=== PATIENT | male | born 1985 | race Two or more races ===

== ENCOUNTER 2016-11-01 11:28 | Inpatient (IN) | payer BC ==
[~2016-11-01 11:28] MED LIST: NO MEDICATIONS
[2016-11-01] MEDS ORDERED: LEXAPRO20 M2 PO (11:41)
[2016-11-01] MEDS ORDERED: ASPIRIN325 M3 PO (11:42)
[2016-11-01] MEDS ORDERED: XANAX0.25 M1 PO (11:42)
[2016-11-01 12:59] LABS: BASO % 0.3 % (0-2); EOS % 0.1 % (0-7); HCT-HEMATOCRIT 39.7 % (36.0-53.5); HGB-HEMOGLOBIN 13.5 gm/dl (13.5-17.0); IMMATURE GRANULOCYTES ABSOLUTE 0.01 tho/cmm (0-0.03); IMMATURE GRANULOCYTES PERCENT 0.1 % (0-0.3); LYMPH % 15.4 % (20-45); LYMPH ABSOLUTE COUNT 1.1 tho/cmm (0.8-4.5); MCH (MEAN CORPUSCULAR HGB) 25.8 pg (28.0-32.0); MCV (MEAN CELL VOLUME) 75.9 fl (82.0-96.0); MEAN PLATELET VOLUME 8.9 cmc (9.4-12.4); MONO % 6.7 % (0-12); MONOCYTE ABSOLUTE COUNT 0.5 tho/cmm (0.0-1.2); NEUTROPHIL ABSOLUTE COUNT 5.5 tho/cmm (1.6-8.0); NEUTROPHIL-AUTOMATED 5.5 tho/cmm (1.6-8.0); NEUTROPHILS % 77.4 % (40-80); PLATELET COUNT 219 tho/cmm (150-450); RED BLOOD COUNT 5.23 mil/cmm (4.40-5.70); RED CELL DISTRIBUTION WIDTH 13.1 % (12.4-16.4); WHITE BLOOD COUNT 7.1 tho/cmm (4.0-10.0)
[2016-11-01 13:12] LABS: ANION GAP 14 mmol/L (0-20); BLOOD UREA NITROGEN 13 mg/dl (6-24); CALCIUM 8.1 mg/dl (8.5-10.5); CARBON DIOXIDE-VENOUS 24 mmol/L (22-32); CHLORIDE 105 mmol/l (96-110); CREATININE 0.96 mg/dl (0.60-1.30); GLUCOSE 104 mg/dL (70-110); SODIUM 139 mmol/L (135-145); eGFR VALUE FOR BLACK >90 mL/Min
[2016-11-01 15:04] LABS: CSF GLUCOSE 56 mg/dl (40-75)
[2016-11-01 15:14] LABS: CSF APPEARANCE CLEAR (CLEAR); CSF COLOR COLORLESS (COLORLESS); CSF RBC CT 194 cmm (0); CSF TUBE NUMBER CSF TUBE 3
[2016-11-01 15:16] LABS: CSF WBC CT 103 cmm (0-10)
[2016-11-01 15:28] LABS: CSF LYMPHOCYTES 30 % (40-80); CSF MONOCYTES 4 % (15-45); CSF NEUTROPHILS 66 % (0-6)
[2016-11-02 05:32] LABS: BASO % 0.6 % (0-2); EOS % 0.3 % (0-7); HCT-HEMATOCRIT 38.9 % (36.0-53.5); HGB-HEMOGLOBIN 13.1 gm/dl (13.5-17.0); LYMPH % 28.1 % (20-45); MCH (MEAN CORPUSCULAR HGB) 25.5 pg (28.0-32.0); MCHC MEAN CORPUSCULAR HGB CONC 33.7 % (32.0-36.0); MCV (MEAN CELL VOLUME) 75.8 fl (82.0-96.0); MEAN PLATELET VOLUME 8.6 cmc (9.4-12.4); MONO % 10.7 % (0-12); MONOCYTE ABSOLUTE COUNT 0.8 tho/cmm (0.0-1.2); NEUTROPHIL ABSOLUTE COUNT 4.2 tho/cmm (1.6-8.0); NEUTROPHIL-AUTOMATED 4.2 tho/cmm (1.6-8.0); NEUTROPHILS % 60.3 % (40-80); PLATELET COUNT 208 tho/cmm (150-450); RED BLOOD COUNT 5.13 mil/cmm (4.40-5.70)
[2016-11-02 05:46] LABS: ANION GAP 9 mmol/L (0-20); BLOOD UREA NITROGEN 10 mg/dl (6-24); C-REACTIVE PROTEIN 0.9 mg/dl (0-0.9); CALCIUM 7.9 mg/dl (8.5-10.5); CARBON DIOXIDE-VENOUS 27 mmol/L (22-32); CHLORIDE 109 mmol/l (96-110); CREATININE 0.88 mg/dl (0.60-1.30); GLUCOSE 98 mg/dL (70-110); MAGNESIUM 2.2 mg/dl (1.8-2.6); POTASSIUM 3.8 mmol/L (3.7-5.1); SODIUM 141 mmol/L (135-145); eGFR VALUE FOR BLACK >90 mL/Min
[2016-11-02 05:47] LABS: ESR-ERYTHROCYTE SED RATE 10 mm/hr (0-15)
[2016-11-02 06:01] LABS: PROCALCITONIN 0.09 ng/ml (0.05-0.09)
[2016-11-02] MEDS ORDERED: TYLENOL325 M2 PO (14:19)
[2016-11-02] MEDS ORDERED: CETIRIZINE HCL10 M1 PO (14:45)
== END 2016-11-02 15:00 | DRG 76 ==
LOC: EDMED 11:28 → EMR2 16:31 → 5WD 17:22
PROVIDERS: Emergency Medicine; Internal Medicine; ADMIT Hospitalist
PROC: 009U3ZX Drainage of Spinal Canal, Percutaneous Approach, Diagnostic (ICD-10-PCS; principal; 2016-11-01)
DX: A87.0 Enteroviral meningitis (principal); F32.9 Major depressive disorder, single episode, unspecified; Z88.5 Allergy status to narcotic agent
CPT/HCPCS: J0696; J1170; J1200; J1885; J2060; J2270; J2405; J3370; J7030